=== PATIENT | male | born 1955 ===

== ENCOUNTER 2018-08-11 07:14 | Day surgery (SDC) | payer OTHER ==
[2018-08-11] MEDS ORDERED: Lactated Ringer's 500 ML IV ONE (07:50)
[2018-08-11 08:21] VITALS: RESP 16
[2018-08-11] MEDS ORDERED: Midazolam 2 MG/2 ML VIAL ONE (08:45)
[2018-08-11] MEDS ORDERED: Propofol 10 mg/ml Inj (20 ML) ONE (08:46)
[2018-08-11 09:55] VITALS: BP 103/58; PULSE 61; TEMP 97; O2SAT 95
== END 2018-08-11 09:56 | disposition home or self-care (01) ==
LOC: H.ENDO 07:14 → EDBD 08:00 → H.ENDO 09:56
PROVIDERS: ATTEND Internal Medicine Gastroenterology
DX: Z12.11 Encounter for screening for malignant neoplasm of colon (principal); M19.90 Unspecified osteoarthritis, unspecified site; J44.9 Chronic obstructive pulmonary disease, unspecified; E78.5 Hyperlipidemia, unspecified; E03.9 Hypothyroidism, unspecified; F17.200 Nicotine dependence, unspecified, uncomplicated; K64.8 Other hemorrhoids; K57.30 Diverticulosis of large intestine without perforation or abscess without bleeding; K29.70 Gastritis, unspecified, without bleeding; K30 Functional dyspepsia; K29.50 Unspecified chronic gastritis without bleeding
CPT/HCPCS: 43239; 45378; 88305; J2001; J2250; J2704; J7120